=== PATIENT | male | born 1955 | race Hispanic/Latino ===

== ENCOUNTER 2018-01-16 16:08 | Emergency (ER) | payer MEDICARE ==
[2018-01-16 16:24] VITALS: BP 111/67
[2018-01-16 16:50] LABS: Basophils % (Auto) 0.4 % (0.0-1.8); Eosinophils % (Auto) 0.1 % (0.0-4.3); Hematocrit 33.9 % (35.5-45.6); Hemoglobin 11.7 gm/dl (11.8-15.2); Lymphocytes # (Auto) 1.3 K/mm3 (1.2-5.4); Lymphocytes % (Auto) 12.6 % (13.4-35.0); Mean Corpuscular HGB Conc 34 % (32-34); Mean Corpuscular Hemoglobin 32 pg (28-32); Mean Corpuscular Volume 93 fl (84-94); Monocytes # (Auto) 0.7 K/mm3 (0.0-0.8); Monocytes % (Auto) 7.2 % (0.0-7.3); Platelet Count 220 K/mm3 (140-440); Red Blood Count 3.64 M/mm3 (3.65-5.03); Red Cell Distribution Width 13.6 % (13.2-15.2)
[2018-01-16 17:12] LABS: BUN/Creatinine Ratio 19; Blood Urea Nitrogen 17 mg/dL (9-20); Calcium 8.7 mg/dL (8.4-10.2); Hemolysis Index 0
[2018-01-16 17:34] LABS: Amphetamine Screen,Urine PRESUMPTIVE NEGATIVE; Benzodiazepines Screen,Urine PRESUMPTIVE NEGATIVE; Cannabinoid Screen,Urine PRESUMPTIVE NEGATIVE; Cocaine Screen,Urine PRESUMPTIVE NEGATIVE; Methadone Screen,Urine PRESUMPTIVE NEGATIVE; Opiate Screen,Urine PRESUMPTIVE NEGATIVE
[2018-01-16] MEDS ORDERED: ATROVENT IH ONE (20:18)
[2018-01-16] MEDS ORDERED: PROVENTIL IH ONE (20:18)
[2018-01-16] MEDS ORDERED: DELTASONE PO ONE (20:19)
--- NOTE | 2018-01-16 20:26 | Emergency Department Report ---
HPI - General Chief Complaint: Upper Respiratory Infection Time Seen by Provider: 01/16/18 20:08 - HPI HPI: Room 3 The patient is a 62-year-old male presented with the chief complaint of cough and fever. The patient states diagnosed with a viral pneumonia 1.5 weeks ago but states he wasn't placed on any medication. The patient states his symptoms have persisted which includes a subjective fever, chills, shortness of breath and sinus congestion. Patient admits to rhinorrhea and a cough that is nonproductive. Patient denies suicidal or homicidal ideation. Patient denies auditory or visual hallucinations Location: Lungs Duration: 1.5 weeks Quality: Shortness of breath Severity: Moderate Modifying factors: [see above] Context: [see above] Mode of transportation: [not driving] ED Past Medical Hx - Past Medical History Previous Medical History?: Yes Hx Psychiatric Treatment: Yes (schizophrenia, PTSD) - Surgical History Past Surgical History?: No - Family History Family history: no significant - Social History Smoking Status: Current Every Day Smoker (15 cigarettes daily) Substance Use Type: None (denies illicit drug use) - Medications Home Medications: Home Medications Medication Instructions Recorded Confirmed Last Taken Type diphenhydrAMINE [Benadryl] 50 mg PO QHS PRN 12/07/13 04/26/14 Unknown History ALBUTEROL Inhaler [Proair] 2 puff IH QID PRN #1 inhalation 01/16/18 Unknown Rx Azithromycin [Zithromax Z-MAURY] 0 mg PO DAILY #6 tab 01/16/18 Unknown Rx Prednisone [predniSONE 10 mg 10 mg PO .TAPER #1 tab.ds.pk 01/16/18 Unknown Rx (6-Day Pack, 21 Tabs)] ED Review of Systems ROS: Stated complaint: PNEUMONIA Other details as noted in HPI Constitutional: chills, fever (subjective) Respiratory: cough, shortness of breath Psychiatric: denies: auditory hallucinations, visual hallucinations, homicidal thoughts, suicidal thoughts Physical Exam - Physical Exam Vital Signs: Vital Signs 01/16/18 16:17 Temperature 99.0 F Pulse Rate 106 H Respiratory 18 Rate Blood Pressure 111/67 O2 Sat by Pulse 99 Oximetry Physical Exam: GENERAL: The patient is well-developed well-nourished male sitting on stretcher not appearing to be in acute distress. [] HEENT: Normocephalic. Atraumatic. Extraocular motions are intact. Patient has moist mucous membranes. NECK: Supple. Trachea midline CHEST/LUNGS: Faint occasional expiratory wheezing. There is no respiratory distress noted. HEART/CARDIOVASCULAR: Regular. There is no tachycardia. There is no gallop rub or murmur. ABDOMEN: Abdomen is soft, nontender. Patient has normal bowel sounds. There is no abdominal distention. SKIN: There is no rash. There is no edema. There is no diaphoresis. NEURO: The patient is awake, alert, and oriented. The patient is cooperative. The patient has normal speech MUSCULOSKELETAL: There is no evidence of acute injury. ED Course Vital Signs 01/16/18 16:17 Temperature 99.0 F Pulse Rate 106 H Respiratory 18 Rate Blood Pressure 111/67 O2 Sat by Pulse 99 Oximetry - Consultations Consultation #1: 01/16/18 22:18 Case discussed with advertising sales consultant. Patient does not meet inpatient criteria. Patient does not wish to have social work consult ED Medical Decision Making - Lab Data Result diagrams: 01/16/18 16:32 01/16/18 16:32 - Radiology Data Radiology results: image reviewed (chest x-ray) interpreted by me: Chest x-ray-left lower lobe atelectasis - Differential Diagnosis pneumonia, bronchitis, COPD exacerbation Critical care attestation.: If time is entered above; I have spent that time in minutes in the direct care of this critically ill patient, excluding procedure time. ED Disposition Clinical Impression: Bronchitis, Wheezing, Schizophrenia Disposition: -01 TO HOME OR SELFCARE Is pt being admited?: No Does the pt Need Aspirin: No Condition: Stable Instructions: Acute Bronchitis (ED) Additional Instructions: Return to the emergency department immediately should you develop worsening symptoms, fever, inability to tolerate food or liquid or any other concerns. Prescriptions: ALBUTEROL Inhaler [Proair] 2 puff IH QID PRN #1 inhalation PRN Reason: Shortness Of Breath Azithromycin [Zithromax Z-MAURY] 0 mg PO DAILY #6 tab Prednisone [predniSONE 10 mg (6-Day Pack, 21 Tabs)] 10 mg PO .TAPER #1 tab.ds.pk Referrals: AMY LEONARDO MD [Primary Care Provider] - 3-[address] [facility] [Outside] - 3-5 Days Time of Disposition: 22:20
--- NOTE | 2018-01-16 22:52 | XRay Report ---
FINAL REPORT PROCEDURE: XR CHEST 1V AP TECHNIQUE: Chest radiograph anteroposterior view. CPT 10026 HISTORY: cough, fever, COMPARISON: No prior studies are available for comparison. FINDINGS: Heart: Normal. Mediastinum/Vessels: Normal. Lungs/Pleural space: Lungs are hyperinflated. Inhomogeneous densities are noted in the left lung base including left retrocardiac region. Right lung and bilateral pleural spaces are clear. Bony thorax: No acute osseous abnormality. Life support devices: None. IMPRESSION: COPD Inhomogeneous densities left lower lung most likely represent pneumonia. A two view chest study is recommended whenever the patient's condition permits..
== END 2018-01-16 22:41 | disposition home or self-care (01) ==
LOC: ED 16:08
DX: J40 Bronchitis, not specified as acute or chronic (principal); F20.9 Schizophrenia, unspecified; F17.210 Nicotine dependence, cigarettes, uncomplicated; F43.10 Post-traumatic stress disorder, unspecified; Z88.5 Allergy status to narcotic agent; Z88.8 Allergy status to other drugs, medicaments and biological substances; Z79.899 Other long term (current) drug therapy
CPT/HCPCS: 36415; 71045; 80048; 80307; 85025; 87040; 87086; 94644; 99284; J7512